=== PATIENT | male | born 1960 | race Hispanic/Latino ===

== ENCOUNTER 2018-11-16 08:33 | Day surgery (SDC) | payer BC ==
[2018-11-16 09:30] LABS: Hematocrit 43.7 % (35.5-45.6); Hemoglobin 15.3 gm/dl (11.8-15.2); Mean Corpuscular HGB Conc 35 % (32-34); Mean Corpuscular Volume 107 fl (84-94); Platelet Count 147 K/mm3 (140-440); Red Blood Count 4.08 M/mm3 (3.65-5.03); Red Cell Distribution Width 14.4 % (13.2-15.2)
[2018-11-16 09:41] LABS: INR 0.93 (0.87-1.13)
[2018-11-16 09:42] LABS: Partial Thromboplastin Time 28.2 Sec. (24.2-36.6)
[2018-11-16 09:43] LABS: Calcium 9.3 mg/dL (8.4-10.2)
[2018-11-16] MEDS ORDERED: NACL 0.9% 500 ML 500 ML IV SCH (10:00)
[2018-11-16] MEDS ORDERED: HEPARIN/NS 5000 UNIT/500ML(CATH LAB) 0 ML IR ONE (11:08)
[2018-11-16] MEDS ORDERED: XYLOCAINE 2% INFILTRATI ONE (11:59)
[2018-11-16] MEDS ORDERED: HEPARIN/NS 5000 UNIT/500ML(CATH LAB) 500 ML IR ONE ×2 (11:59→12:40)
[2018-11-16] MEDS ORDERED: VERSED ONE (12:25)
[2018-11-16] MEDS ORDERED: SUBLIMAZE ONE (12:25)
[2018-11-16] MEDS ORDERED: NITROGLYCERIN SYRINGE 3 ML ONE (12:50)
[2018-11-16] MEDS: HEPARIN 10,000 UNITS/10 ML ONE ×2 (12:50→13:21)
[2018-11-16] MEDS ORDERED: CALAN ONE (12:50)
--- NOTE | 2018-11-16 13:52 | Short Stay Summary ---
Short Stay Documentation Date of service: 11/16/18 Narrative H&P: See H&P - History H&P: obtained from office - Allergies and Medications Current Medications: Allergies adhesive tape Adverse Reaction (Unverified 11/16/18 08:34) Rash Home Medications Medication Instructions Recorded Confirmed Last Taken Type Pravastatin [Pravachol] 20 mg PO DAILY 11/16/18 11/16/18 11/15/18 History 1 tab amLODIPine [Norvasc] 5 mg PO DAILY 11/16/18 11/16/18 11/15/18 History 1 tab raNITIdine HCl [Zantac] 150 mg PO 11/16/18 11/15/18 History 1 tab Active Medications Sodium Chloride (Nacl 0.9% 500 Ml) 500 mls @ 50 mls/hr IV DIRECT NICA - Brief post op/procedure progress note Date of procedure: 11/16/18 Pre-op diagnosis: 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 Ultrasound-Guided Access Right Radial Artery 2. Diagnostic Thoracic Aortogram (No Previous Films For Comparison) 3. Right Upper Extremity Runoff (No Previous Films For Comparison) 4. Angioplasty of Right Subclavian Artery with 7 x 60 Lutonix Drug-Coated Balloon 5. Radiologic Supervision with Interpretation Anesthesia: local Surgeon: YAMILETH LOVE Estimated blood loss: 50-100ml Condition: stable - Disposition Condition at discharge: Good Disposition: DC-01 TO HOME OR SELFCARE Short Stay Discharge Plan Activity: other (no strenuous activity with right arm for 24 hours) Wound: open to air, keep clean and dry Follow up with: YAMILETH LOVE MD [Staff Physician] - 14 Days Prescriptions: HYDROcodone/APAP 7.5-325 [[place] 7.5/325] 1 each PO Q6HR PRN #20 tablet PRN Reason: Pain Clopidogrel [Plavix] 75 mg PO QDAY #90 tablet
[2018-11-16] MEDS ORDERED: PLAVIX PO ONE (14:37)
--- NOTE | 2018-11-16 14:38 | Operative Report ---
Operative Report Operative Report: Date of Procedure: 11/16/2018 Pre-operative Diagnosis: Right Subclavian Stenosis with Vertebrobasilar Syndrome Post-operative Diagnosis: Same Procedure(s): 1. Ultrasound-Guided Access Right Radial Artery 2. Diagnostic Thoracic Aortogram (No Previous Films For Comparison) 3. Right Upper Extremity Runoff (No Previous Films For Comparison) 4. Angioplasty of Right Subclavian Artery with 7 x 60 Lutonix Drug-Coated Balloon 5. Radiologic Supervision with Interpretation Surgeon: Jarek Torre M.D. Registration Rep: None Anesthesia: Local and IV Sedation EBL: 50 mL Counts: Correct Complications: None Condition: Stable Specimen: None Indication: The patient is a 58-year-old male with a history of tobacco abuse and peripheral vascular disease who had a previous stent placed in his right subclavian artery in 2011. He presented to the office with complaints of dizziness that was associated with use of his right upper extremity. He also had a differential on his pulse exam as well as a greater than 20 point differential in his systolic blood pressure with his left being greater than his right. His symptoms are consistent with vertebrobasilar syndrome and occlusion/stenosis of his subclavian artery. He had a upper extremity duplex that demonstrated monophasic flow in the entire right upper extremity which is consistent with the exam findings. Given this the patient was offered a right upper extremity arteriogram with possible intervention to resolve his symptoms as he is right hand dominant and this has been affecting his job. He was given the risk, benefits, and alternative procedures and consented to the procedure. Angiographic Findings: The right upper extremity arteriogram revealed complete occlusion of the subclavian stent with retrograde flow through the right vertebral artery supplying flow to the distal subclavian artery. The diagnostic thoracic aortogram revealed the aorta was patent without evidence of aneurysmal dilatation or significant stenosis. There was no significant evidence of left common carotid or left subclavian stenosis noted. The innominate artery was patent without any evidence of flow-limiting stenosis. The right common carotid artery was patent without evidence of flow-limiting stenosis. After intervention there was less than 10% residual stenosis in the right subclavian artery and the right vertebral artery had antegrade flow as well as preserved flow in the right internal mammary artery and the thyrocervical trunk. Description of Procedure: The patient was brought into the foundry laborer coreroom and laid in supine position. After a timeout was performed his right arm and right groin were prepped and draped in normal sterile fashion. Ultrasound was used to identify the right radial artery and confirm patency. Once patency was confirmed 1% lidocaine was used to anesthetize the skin overlying the artery and micropuncture technique was used to access the artery in retrograde fashion. A 6 Haitian Terumo sheath was then inserted by Seldinger technique. At this point I injected a radial cocktail which included 2000 units of heparin, verapamil, and nitroglycerin through the sheath into the radial artery. A 0.035 Bentson wire and a vertebral catheter were advanced into the proximal subclavian artery and a right upper extremity arteriogram was performed demonstrating the previously described findings of an occluded stent in the proximal subclavian artery with retrograde flow from the vertebral artery providing flow to the distal subclavian artery. I systemically heparinized the patient with an additional 2000 units of heparin IV. I exchanged the Bentson wire for a 0.018 V18 wire and was able to cannulate the occluded stent and eventually able to advance the vertebral catheter into the stent. Once the catheter was embedded within the stent I was able to manipulate the wire through the stent and into the thoracic aorta which was confirmed by arteriogram. I spun the catheter in the aorta to confirm that the catheter was not behind the struts of the stent. I then advanced the V 18 wire into the descending aorta and used a 6 x 20 cutting balloon to perform angioplasty within the stent. After using the cutting balloon I then used a 7 x 60 Lutonix Drug- Coated Balloon to perform angioplasty of the stent as well as the remainder of the subclavian artery. Prior to making the decision to use the drug-coated balloon I had considered using a covered stent however this was not possible as the stent graft was 12 mm longer than the previously placed stent and would have covered the internal mammary artery and possibly the vertebral artery. After performing angioplasty with the 7 x 60 balloon I readvanced the vertebral catheter into the distal innominate artery and performed an arteriogram revealing that the carotid artery was patent. The subclavian artery was patent with less than 10% residual stenosis. The vertebral artery was now antegrade and there was preserved flow within the internal mammary artery as well as the thyrocervical trunk. At that point I removed the catheter and the right radial sheath was removed after placing a TLR Band to achieve hemostasis at the radial artery puncture site. The patient tolerated the procedure well and was transported to the recovery area in stable condition.
[2018-11-16 16:16] VITALS: BP 119/63
== END 2018-11-16 17:11 | disposition home or self-care (01) ==
LOC: CATHLABREC 08:33
PROVIDERS: ATTEND Surgery Vascular Surgery
DX: I77.1 Stricture of artery (principal); G45.0 Vertebro-basilar artery syndrome; I70.213 Atherosclerosis of native arteries of extremities with intermittent claudication, bilateral legs; E78.00 Pure hypercholesterolemia, unspecified; G47.30 Sleep apnea, unspecified; N18.3 Chronic kidney disease, stage 3 (moderate); M19.90 Unspecified osteoarthritis, unspecified site; F17.210 Nicotine dependence, cigarettes, uncomplicated; Z79.899 Other long term (current) drug therapy; Z87.442 Personal history of urinary calculi; Z72.89 Other problems related to lifestyle; Z80.8 Family history of malignant neoplasm of other organs or systems; Z79.01 Long term (current) use of anticoagulants
CPT/HCPCS: 36415; 37246; 75605; 75710; 76937; 80048; 85027; 85610; 85730; 99156; 99157; C1725; C1769; C1894; C2623; J1644; J2250; J3010; J7040; Q9967

== ENCOUNTER 2019-03-27 06:06 | Day surgery (SDC) | payer BC ==
[2019-03-27] MEDS ORDERED: SODIUM CHLORIDE 0.9% 1000 ML 1,000 ML IV SCH (07:00)
[2019-03-27 10:10] VITALS: BP 128/59
--- NOTE | 2019-03-27 11:36 | Cat Scan Report ---
CTA NECK WITH CONTRAST HISTORY: COMPARISON: None. TECHNIQUE: Routine CTA of the neck was performed. 3-D/MIP reformats were postprocessed. Percentage s tenosis is determined by direct quantitative measurements of diseased internal carotid artery diamete r compared with normal distal internal carotid artery reference segments or by criteria similar to NA SCET where applicable.All CT scans at this location are performed using CT dose reduction for ALARA b y means of automated exposure control CONTRAST: 100 ml of Omnipaque 350 FINDINGS: Aortic arch: 2 air margin of aortic arch is normal. Origins of innominate artery and left subclavian artery are normal. Less than 30% narrowing is seen in the proximal 1 cm from the origin of left commo n carotid artery. Cervical vertebral arteries: No significant abnormality. Common carotid arteries: No significant abnormality. Carotid bifurcations: Calcified atheromatous plaque is seen at the origin of right internal carotid a rtery 50% stenoses. 12 mm long atheromatous plaque is seen in the proximal left internal carotid artery. Dense circumfere ntial calcification is seen near the origin narrowing the lumen by 50%. Cervical internal carotid arteries: No significant abnormality. Additional findings: None. IMPRESSION: 50% stenoses in both proximal internal carotid arteries due to calcified plaques Signer Name: Bianka Gallegos MD Signed: 03/27/2019 11:31 AM Workstation Name: [id number]
== END 2019-03-27 11:32 | disposition home or self-care (01) ==
LOC: CATHLABREC 06:06
PROVIDERS: ATTEND Surgery Vascular Surgery
DX: I65.23 Occlusion and stenosis of bilateral carotid arteries (principal)
CPT/HCPCS: 36415; 70498; 82565; 84520; 96360; 96361; J7030; Q9967

== ENCOUNTER 2020-05-22 08:08 | Day surgery (SDC) | payer BC ==
[2020-05-22] MEDS ORDERED: VERAPAMIL 5 MG/2 ML INJ ONE (09:14)
[2020-05-22] MEDS ORDERED: MIDAZOLAM 2 MG/2 ML INJ ONE (09:14)
[2020-05-22] MEDS ORDERED: HEPARIN 10,000 UNITS/10 ML VIAL ONE (09:14)
[2020-05-22] MEDS ORDERED: HEPARIN/NS 5000 UNIT/500ML 1,000 ML IR ONE (09:14)
[2020-05-22] MEDS ORDERED: NITROGLYCERIN SYRINGE 3 ML ONE (09:15)
[2020-05-22 09:50] LABS: Hematocrit 42.8 % (35.5-45.6); Hemoglobin 14.9 gm/dl (11.8-15.2); Mean Corpuscular HGB Conc 35 % (32-34); Mean Corpuscular Volume 110 fl (84-94); Platelet Count 149 K/mm3 (140-440); Red Blood Count 3.91 M/mm3 (3.65-5.03); Red Cell Distribution Width 14.4 % (13.2-15.2)
[2020-05-22] MEDS ORDERED: SODIUM CHLORIDE 0.9% 500 ML 500 ML IV SCH (10:00)
[2020-05-22 10:02] LABS: Calcium 9.4 mg/dL (8.4-10.2)
[2020-05-22 10:03] LABS: INR 0.93 (0.87-1.13)
[2020-05-22 10:04] LABS: Partial Thromboplastin Time 27.8 Sec. (24.2-36.6)
[2020-05-22] MEDS: fentaNYL 100 MCG/2 ML INJ ONE ×2 (11:30→12:19)
[2020-05-22] MEDS: LIDOCAINE (2%) 20 MG/1 ML VIAL 20 ML MDV INFILTRATI ONE ×2 (11:37→11:40)
--- NOTE | 2020-05-22 12:32 | Short Stay Summary ---
Short Stay Documentation Date of service: 05/22/20 Narrative H&P: See H&P - History H&P: obtained from office - Allergies and Medications Current Medications: Allergies adhesive tape Adverse Reaction (Verified 04/16/19 09:02) Rash Home Medications Medication Instructions Recorded Confirmed Last Taken Type Clopidogrel [Plavix] 75 mg PO QDAY #90 tablet 11/16/18 05/22/20 05/22/20 Rx 0630 Pravastatin [Pravachol] 20 mg PO QHS 11/16/18 05/22/20 05/21/20 History Aspirin EC [Halfprin EC] 81 mg PO HS 03/27/19 05/22/20 05/22/20 06:30 History Cholecalciferol (Vitamin D3) 1 tab PO DAILY 03/27/19 05/22/20 05/21/20 History [Vitamin D3 2,000 UNIT CAP] Metoprolol [Lopressor TAB] 25 mg PO BID 03/27/19 05/22/20 05/22/20 History Potassium Citrate [Urocit-K 15] 15 meq PO DAILY 03/27/19 05/22/20 05/21/20 History Sertraline [Zoloft] 100 mg PO DAILY 03/27/19 05/22/20 05/22/20 History allopurinoL [Zyloprim] 300 mg PO DAILY 03/27/19 05/22/20 05/21/20 History HYDROcodone/APAP 7.5-325 [Telephone 1 each PO Q6H #40 tablet 04/17/19 05/22/20 2 Weeks Ago Rx 7.5/325] ~05/08/20 Active Medications Sodium Chloride (Nacl 0.9% 500 Ml) 500 mls @ 50 mls/hr IV DIRECT NICA Last Admin: 05/22/20 11:00 Dose: 50 mls/hr Documented by: - Brief post op/procedure progress note Date of procedure: 05/22/20 Pre-op diagnosis: Peripheral Vascular Disease With Right Subclavian Artery Occlusion Post-op diagnosis: same Procedure: 1. Ultrasound-Guided Access Right Common Femoral Artery 2. Catheter in Thoracic Aorta 3. Diagnostic Aortogram 4. Catheter in Right Subclavian Artery 5. Diagnostic Right Upper Extremity Angiogram 6. Angioplasty of Right Subclavian Artery with 7 x 40 Angiosculpt Balloon and 7 x 80 IN.PACT Drug-Coated Balloon 7. Closure of Right Femoral Arteriotomy with Pro-[place] Closure Device 8. Radiologic Supervision with Interpretation 9. Monitored Moderate Sedation (Total Anesthesia Time: 60 Minutes) Anesthesia: local, other (Monitored Moderate Sedation) Surgeon: YAMILETH LOVE Estimated blood loss: minimal Pathology: none Condition: stable - Disposition Condition at discharge: Good Disposition: DC-01 TO HOME OR SELFCARE Short Stay Discharge Plan Activity: other (No strenuous activity for 24 hours) Wound: remove dressing (In 48 hours), other (Okay to shower and wash the wound with soap and water but do not soak in water for 2 weeks) Follow up with: YAMILETH LOVE MD [Staff Physician] - 7 Days
[2020-05-22] MEDS ORDERED: HYDROcodone/ACETAMINOPHEN 5-325 MG TAB PO PRN (12:34)
--- NOTE | 2020-05-22 12:34 | Operative Report ---
Operative Report Operative Report: Date of Procedure: 05/22/2020 Pre-operative Diagnosis: PVD with Symptomatic Right Subclavian Artery Occlusion Post-operative Diagnosis: Same Procedure(s): 1. Ultrasound-Guided Access Right Common Femoral Artery 2. Catheter in Thoracic Aorta 3. Diagnostic Aortogram 4. Catheter in Right Subclavian Artery 5. Diagnostic Right Upper Extremity Angiogram 6. Angioplasty of Right Subclavian Artery with 7 x 40 Angiosculpt Balloon and 7 x 80 IN.PACT Drug-Coated Balloon 7. Closure of Right Femoral Arteriotomy with Pro-[place] Closure Device 8. Radiologic Supervision with Interpretation 9. Monitored Moderate Sedation (Total Anesthesia Time: 60 Minutes) Surgeon: Jarek Torre M.D. Quality Assurance Clerk: None Anesthesia: Local/Monitored Moderate Sedation Total Anesthesia Time: 60 Minutes EBL: Minimal Counts: Correct Complications: None Condition: Stable Specimen: None Indication: The patient is a 60-year-old male with a history of peripheral vascular disease and subclavian artery occlusion who has had previous angioplasty and stent of the right subclavian artery. He presented to the office with complaints consistent with subclavian steal. He has a greater than 30 mmHg difference between his right arm and left arm. He is in need of a diagnostic right upper extremity angiogram with possible intervention. He was given the risk, benefits, and alternative procedures and consented to the procedure. Angiographic Findings: The diagnostic aortogram revealed that the thoracic aorta was patent without evidence of aneurysmal dilatation or flow-limiting stenosis. The innominate artery was patent without evidence of flow-limiting stenosis or aneurysmal dilatation. The right subclavian artery had a 99% stenosis. The right common carotid artery was patent without evidence of flow-limiting stenosis. The left common carotid artery was patent without evidence of flow-limiting stenosis. The left subclavian artery was patent without evidence of flow-limiting stenosis. The right upper extremity angiogram revealed the right distal subclavian artery, axillary artery, and proximal brachial artery were patent without evidence of flow-limiting stenosis. After intervention the proximal subclavian artery was patent with less than 10% residual stenosis. Description of Procedure: The patient was brought to the Reconciling Clerk and laid in supine position. After a timeout was performed both his right wrist and right groin were prepped and draped in normal sterile fashion. I initially used ultrasound to interrogate his right radial artery however I was unable to identify the artery and it was likely occluded from previous interventions performed through the artery. I used ultrasound to identify the right common femoral artery and confirm patency. Once patency was confirmed lidocaine was used to anesthetize the skin and overlying soft tissue. I used an 11 blade to make a small stab incision and then used a curved hemostat with ultrasound guidance to bluntly dissect down to the anterior surface of the right common femoral artery. Use a 21-gauge micropuncture needle with ultrasound guidance into the right common femoral artery and then advanced a 0.018 micropuncture wire. I removed the needle and then advanced a micropuncture sheath by Seldinger technique. I remove the wire and inner cannula and then advanced a 0.035 J-wire. I remove the micropuncture sheath and placed a 6 Ecuadorean sheath by Seldinger technique. I advanced the wire into the thoracic aorta and then advanced a 6 Ecuadorean IM catheter. I performed a diagnostic thoracic aortogram with the previously described findings. I then used the IM catheter to cannulate the innominate artery and was able to use the IM catheter with a 0.035 advantage wire to cannulate the stent within the subclavian artery. I advanced the wire into the brachial artery and then advanced the catheter into the subclavian artery. I placed a Tuohy Josette on the catheter and performed a diagnostic right upper extremity angiogram with the previously described findings. I remove the catheter leaving the wire in place and then exchanged my 6 Ecuadorean sheath for a 7 Ecuadorean 90 cm destination sheath. I advanced the sheath into the distal subclavian artery and then systemically heparinized the patient with 5000 units of heparin IV. I then advanced a 7 mm Spider Wire into the subclavian artery, just distal to the stent and then performed angioplasty of the stent using a 7 x 40 Angiosculpt Balloon. After performing angioplasty with the balloon I readvanced the IM catheter into the subclavian artery to recapture the Spider Wire and then readvanced the advantage wire into the brachial artery. I then performed angioplasty of the stent and distal subclavian artery using a 7 x 80 IN.PACT Drug-Coated Balloon with a result of less than 10% residual stenosis. At this point I pulled the sheath back into the right external iliac artery and exchanged the wire for a J-wire. I then closed my right femoral arteriotomy with a Pro-glide closure device. A sterile dressing was then applied to the entry site and the patient was trans ported to the recovery area in stable condition
[2020-05-22 14:21] VITALS: BP 144/75
== END 2020-05-22 14:30 | disposition home or self-care (01) ==
LOC: CATH 08:08
PROVIDERS: ATTEND Surgery Vascular Surgery
DX: I65.21 Occlusion and stenosis of right carotid artery (principal); I73.9 Peripheral vascular disease, unspecified; G43.909 Migraine, unspecified, not intractable, without status migrainosus; E78.00 Pure hypercholesterolemia, unspecified; K21.9 Gastro-esophageal reflux disease without esophagitis; I12.9 Hypertensive chronic kidney disease with stage 1 through stage 4 chronic kidney disease, or unspecified chronic kidney disease; N18.30 Chronic kidney disease, stage 3 unspecified; Z87.442 Personal history of urinary calculi; M19.90 Unspecified osteoarthritis, unspecified site; F32.9 Major depressive disorder, single episode, unspecified; F17.210 Nicotine dependence, cigarettes, uncomplicated; Z72.89 Other problems related to lifestyle; Z98.890 Other specified postprocedural states; Z80.8 Family history of malignant neoplasm of other organs or systems; Z88.8 Allergy status to other drugs, medicaments and biological substances; Z79.899 Other long term (current) drug therapy
CPT/HCPCS: 36415; 37246; 75625; 75710; 76937; 80048; 85027; 85610; 85730; 99156; 99157; C1725; C1760; C1769; C1884; C1887; C1894; C2623; J1644; J2250; J3010; J7040; Q9967

== ENCOUNTER 2020-06-16 06:16 | Inpatient (IN) | payer BC ==
[2020-06-15 10:42] LABS: Hematocrit 40.2 % (35.5-45.6); Mean Corpuscular HGB Conc 35 % (32-34); Mean Corpuscular Volume 109 fl (84-94); Platelet Count 140 K/mm3 (140-440); Red Blood Count 3.68 M/mm3 (3.65-5.03); Red Cell Distribution Width 14.2 % (13.2-15.2)
[2020-06-15 11:02] LABS: Albumin 3.8 g/dL (3.9-5); Calcium 9.4 mg/dL (8.4-10.2)
--- NOTE | 2020-06-15 11:54 | Anesthesia Consultation ---
Anesthesia Consult and Med Hx Date of service: 06/16/20 - Airway Anesthetic Teeth Evaluation: Dentures ROM Head & Neck: Adequate Mental/Hyoid Distance: Adequate Mallampati Class: Class II Intubation Access Assessment: Probably Good - Pulmonary Exam CTA: Yes - Cardiac Exam Cardiac Exam: RRR - Pre-Operative Health Status ASA Pre-Surgery Classification: ASA3 Proposed Anesthetic Plan: General - Pulmonary Hx Smoking: Yes (1PPD) Hx Respiratory Symptoms: No - Cardiovascular System Hx Hypertension: Yes Hx Heart Attack/AMI: No Hx Percutaneous Transluminal Coronary Angioplasty (PTCA): No Hx Cardia Arrhythmia: No Hx Peripheral Vascular Disease: Yes (b/l LE; last dose ASA/plavix 06/15/20) - Central Nervous System CVA: No Hx Psychiatric Problems: Yes (depression) - Gastrointestinal Hx Gastroesophageal Reflux Disease: Yes - Endocrine Hx Renal Disease: Yes (CKD 3) Hx Liver Disease: No Hx Insulin Dependent Diabetes: No Hx Non-Insulin Dependent Diabetes: No Hx Thyroid Disease: No - Other Systems Hx Obesity: No - Additional Comments Anesthesia Medical History Comments: No hx anesthetic complications. Most recent cardiac records/eval reviewed. 02/2018: normal ST and TTE. 03/2019 EKG SB.
[~2020-06-16 06:16] MED LIST: ACETAMINOPHEN 500 MG TAB PO SCH; BACTERIOSTATIC SODIUM CHLORIDE 0.9% 30 ML VIAL INFILTRATI ONE; MIDAZOLAM 2 MG/2 ML INJ IV NR; ceFAZolin/Water 2 GM/20 ML 2 GM/20 ML SYRINGE IV NR
--- NOTE | 2020-06-16 06:34 | Anesthesia Day of Surgery ---
Anesthesia Day of Surgery - Day of Surgery Patient Examined: Yes Patient H&P Reviewed: Yes Patient is NPO: Yes Beta Blockers: Yes
[2020-06-16] MEDS ORDERED: LIDOCAINE (2%) 20 MG/1 ML VIAL 20 ML MDV INFILTRATI ONE (06:52)
[2020-06-16] MEDS ORDERED: MAGNESIUM SULFATE 2 GM/50 ML BAG IV ONE (06:53)
[2020-06-16] MEDS ORDERED: KETAMINE/STERILE WATER 50 MG/ML SYRINGE ONE (07:00)
[2020-06-16] MEDS ORDERED: KETOROLAC 30 MG/1 ML INJ ONE (07:06)
[2020-06-16] MEDS ORDERED: ONDANSETRON 4 MG/2 ML INJ ONE (07:06)
[2020-06-16] MEDS ORDERED: propofoL 200 MG/20 ML VIAL IV ONE (07:06)
[2020-06-16] MEDS ORDERED: ROCURONIUM 50 MG/5 ML INJ IV ONE (07:06)
[2020-06-16] MEDS ORDERED: dexAMETHasone 20 MG/5 ML VIAL ONE (07:06)
[2020-06-16] MEDS: LACTATED RINGERS 1,000 ML IV SCH ×2 (07:15→22:58)
[2020-06-16] MEDS ORDERED: BUPIVACAINE/PF (0.5%) 5 MG/1 ML 10 ML VIAL INFILTRATI ONE ×4 (07:26→10:06)
[2020-06-16] MEDS ORDERED: HEPARIN 10,000 UNITS/10 ML VIAL ONE (07:26)
[2020-06-16] MEDS ORDERED: GELATIN SPONGE SIZE 100 TP ONE ×2 (07:26→09:06)
[2020-06-16] MEDS ORDERED: PROTAMINE SULFATE 50 MG/5 ML INJ ONE (07:27)
[2020-06-16] MEDS ORDERED: PAPAVERINE 60 MG/2 ML INJ SDV ONE (07:27)
[2020-06-16] MEDS ORDERED: SODIUM CHLORIDE 0.9% 50 ML ONE (07:27)
[2020-06-16] MEDS ORDERED: SODIUM CHLORIDE 0.45% 500 ML IV ONE (07:27)
[2020-06-16] MEDS ORDERED: LIDOCAINE (1%) 10 MG/1 ML VIAL 20 ML MDV ONE (07:28)
[2020-06-16] MEDS ORDERED: THROMBIN (RECOMBINANT) 5,000 UNIT VIAL TP ONE (07:29)
[2020-06-16] MEDS ORDERED: rifAMPin 600 MG VIAL ONE (07:29)
[2020-06-16] MEDS ORDERED: HYDROmorphone 1 MG/1 ML INJ IV PRN (07:34)
[2020-06-16] MEDS ORDERED: ONDANSETRON 4 MG/2 ML INJ IV PRN (07:34)
[2020-06-16] MEDS ORDERED: PHENYLEPHRINE/NS 1,000 MCG/10 ML SYRINGE (OR USE) IV ONE (08:00)
[2020-06-16] MEDS ORDERED: GLYCOPYRROLATE 0.4 MG/2 ML INJ ONE (08:00)
[2020-06-16] MEDS ORDERED: ePHEDrine SULFATE 50 MG/1 ML INJ ONE (08:24)
[2020-06-16] MEDS ORDERED: HEPARIN 10,000 UNITS/10 ML VIAL IV ONE (09:05)
[2020-06-16] MEDS ORDERED: SODIUM CHLORIDE 0.9% 500 ML IVPB IV ONE (09:06)
[2020-06-16] MEDS ORDERED: SODIUM CHLORIDE 0.9% IRR 1,500 ML BOTTLE IR ONE (09:06)
[2020-06-16] MEDS ORDERED: rifAMPin 600 MG VIAL IV ONE (09:25)
[2020-06-16] MEDS ORDERED: SODIUM CHLORIDE 0.9% P/F 10 ML VIAL IV ONE (09:26)
--- NOTE | 2020-06-16 10:29 | Vascular Lab Report ---
DUPLEX DOPPLER ULTRASOUND CAROTID, LEFT INDICATION / CLINICAL INFORMATION: Left carotid atherosclerosis, status post carotid endarterectomy COMPARISON: CTA neck performed on 03/27/2019. FINDINGS: LEFT CAROTID: - PLAQUE ESTIMATE: < 50% - CCA velocity: Not evaluated. - ICA peak systolic velocity: 63 cm/sec. - ICA/CCA PSV Ratio: Not measured. Left Vertebral Artery: Not evaluated. IMPRESSION: Left carotid atherosclerosis resulting in less than 50% stenosis by diameter with a normal peak systo lic velocity along the internal carotid artery as above. Velocity criteria are extrapolated from diameter data as defined by the Society of Radiologists in Ul trasound Consensus Conference, Radiology 2003; 229;340-346. NO STENOSIS (NORMAL) * Plaque = none; ICA PSV < 125 cm/sec; ICA/CCA PSV Ratio < 2.0 <50% STENOSIS * Plaque < 50%; ICA PSV < 125 cm/sec; ICA/CCA PSV Ratio < 2.0 50-69% STENOSIS * Plaque > 50%; ICA PSV = 125-230 cm/sec; ICA/CCA PSV Ratio = 2.0-4.0 >70% BUT <100% STENOSIS * Plaque > 50%; ICA PSV > 230 cm/sec; ICA/CCA PSV Ratio > 4.0 NEAR OCCLUSION * Plaque = visible lumen; ICA PSV = high/low/none; ICA/CCA PSV Ratio = variable TOTAL OCCLUSION * Plaque = no lumen; ICA PSV = none; ICA/CCA PSV Ratio = N/A Signer Name: Damian Arreguin MD Signed: 06/16/2020 10:24 AM Workstation Name: [employer]: [id number]
--- NOTE | 2020-06-16 10:40 | Operative Report ---
Operative Report Operative Report: Date of procedure: 06/16/2020 Pre-operative diagnosis: Asymptomatic Left Carotid Artery Stenosis Post-operative diagnosis: Asymptomatic Left Carotid Artery Stenosis Procedure(s): 1. Left Carotid Endarterectomy With Patch Angioplasty 2. Intraoperative Completion Duplex Surgeon: Jarek Torre MD Plant Engineer: None Anesthesia: General Endotracheal Anesthesia EBL: 75 mL Findings: Firm calcified plaque at the bifurcation extending into the internal and external carotid arteries. Intraoperative completion duplex demonstrated monophasic flow in the internal carotid artery without evidence of thrombus or dissection flap. Specimen: Left Carotid Plaque Counts: Correct Complications: None Condition: Stable Indication: The patient is a 60-year-old male with a history of bilateral asymptomatic carotid artery disease. He has had prior carotid endarterectomy performed on the right now presents for endarterectomy of the left. He has been given the risk, benefits, and alternative procedures and consented to the procedure. Description of Procedure: The patient was brought to the operating room and laid in supine position. After general endotracheal anesthesia was achieved the patient was placed in beachchair position with her head elevated and turned slightly to the right. The patient's neck and chest were prepped and draped in normal fashion. An oblique incision was then created along the anterior border of the sternocleidomastoid. The incision was then carried down to the facial vein using sharp dissection. The facial vein was then dissected out circumferentially, suture ligated and divided. The dissection was then carried down to the common carotid using sharp dissection. The common carotid artery was dissected out circumferentially taking care to avoid the vagus nerve which was identified and avoided. The artery was then controlled with a large vessel loop. The dissection was carried up along the external carotid and the superficial thyroid artery was identified dissected out circumferentially and controlled with a 2-0 silk. The external carotid was dissected out and controlled a small vessel loop. I then dissected out the internal carotid artery well above the plaque which was identified by a change in hue of the artery from yellow to blue and palpation of the artery over a right angle. I controlled the internal carotid artery with a small vessel and at this point the patient was systemically heparinized with heparin IV. Once the heparin had circulated for 3 minute I clamped the internal carotid artery followed by the common carotid and then the external Carotid artery. I created an arteriotomy extending from the common carotid into the internal carotid, well above the plaque, using an 11 blade and Proctor scissors. I then flashed the internal carotid artery to check for adequate backbleeding. Once ensure there was adeq uate backbleeding reclamped the artery and used a Alpine blade to dissect the plaque away from the artery. I used a right angle to continue the dissection of this plane from lateral to medial and then divided the plaque using Proctor scissors. I then trimmed the plaque proximally using Proctor and then teased the plaque away from the distal endpoint insuring that there were no areas of dissection or intimal flaps. These plaque forceps to remove all loose debris and then flushed the artery with heparinized saline. I then closed the artery using the Dacron patch and two 6-0 Prolenes in running fashion. Prior to completing the closure I flushed all arteries to remove all loose debris and then flushed the artery with heparinized saline. I then completed the closure in an flashed the internal carotid, reclamped and then removed the clamp from the common carotid followed by the external carotid and allowed any loose debris to flush into the external carotid. I then removed the clamp from the internal carotid artery. Hemostasis was achieved with repair sutures with 6-0 Prolene in interrupted fashion and a combination of direct pressure with Quick Clot. Once hemostasis was achieved I performed an intraoperative duplex that demonstrated no evidence of dissection and normalization of internal carotid velocity with monophasic waveforms. I then anesthetized the wound with 0.5% Marcaine and closed in 2 layers using a 3-0 Vicryl in running in the deep dermal layer and a 4-0 Monocryl in running in the subcuticular layer and dressed it with the Dermabond. The patient tolerated the procedure well all sponge needle and instrument counts were correct the patient was taken to the recovery area in stable condition.
[2020-06-16] MEDS ORDERED: DOPamine/D5W 800 MG/250 ML 800 MG/250 ML BAG IV SCH (11:00)
[2020-06-16] MEDS ORDERED: HYDROcodone/ACETAMINOPHEN 5-325 MG TAB PO PRN (11:00)
[2020-06-16] MEDS ORDERED: SODIUM CHLORIDE 0.9% 1000 ML 1,000 ML IV SCH (11:00)
[2020-06-16] MEDS ORDERED: NITROPRUSSIDE 50 MG in DEXTROSE 5% IN WATER 248 ML IV SCH (11:00)
[2020-06-16] MEDS: ceFAZolin/NS 1 GM/50 ML 1 GM/50 ML BAG IV SCH ×2 (12:30→20:11)
--- NOTE | 2020-06-16 14:33 | Post Anesthesia Evaluation ---
- Post Anesthesia Evaluation Patient Participated: Yes Airway Patent: Yes Stable Respiratory Function: Yes Nausea/Vomiting: No Temp > 96.8F: Yes Pain Manageable: Yes Adequeate Hydration: Yes Anesthesia Complications: No
--- NOTE | 2020-06-16 17:21 | Consultation ---
History of Present Illness Consult date: 06/16/20 Requesting physician: YAMILETH LOVE Reason for consult: other (PVD s/p CEA) History of present illness: PULMONARY/CCM CONSULT NOTE (Full dictation # [id number]) Please see dictated notes for full details Medications and Allergies Allergies Allergy/AdvReac Type Severity Reaction Status Date / Time adhesive tape AdvReac Rash Verified 06/12/20 12:35 Home Medications Medication Instructions Recorded Confirmed Last Taken Type Clopidogrel [Plavix] 75 mg PO QDAY #90 tablet 11/16/18 06/15/20 06/15/20 Rx Pravastatin [Pravachol] 20 mg PO QHS 11/16/18 06/15/20 06/15/20 History Aspirin EC [Halfprin EC] 81 mg PO HS 03/27/19 06/15/20 06/15/20 History Cholecalciferol (Vitamin D3) 1 tab PO DAILY 03/27/19 06/15/20 06/15/20 History [Vitamin D3 2,000 UNIT CAP] Metoprolol [Lopressor TAB] 25 mg PO BID 03/27/19 06/16/20 06/16/20 05:30 History Potassium Citrate [Urocit-K 15] 15 meq PO DAILY 03/27/19 06/15/20 06/15/20 History Sertraline [Zoloft] 100 mg PO DAILY 03/27/19 06/15/20 06/15/20 History allopurinoL [Zyloprim] 300 mg PO DAILY 03/27/19 06/15/20 06/15/20 History Active Meds: Active Medications Acetaminophen (Acetaminophen 500 Mg Tab) 1,000 mg PO PREOP NICA Stop: 06/16/20 23:59 Last Admin: 06/16/20 06:45 Dose: 1,000 mg Documented by: Hydrocodone Bitart/Acetaminophen (Hydrocodone/Acetaminophen 5-325 Mg Tab) 1 each PO Q6H PRN PRN Reason: Pain, Moderate (4-6) Allopurinol (Allopurinol 300 Mg Tab) 300 mg PO DAILY [facility] Aspirin (Aspirin Ec 81 Mg Tab) 81 mg PO HS [facility] Cholecalciferol (Cholecalciferol (Vit D3) 1000 Unit (25 Mcg) Tab) 1,000 unit PO DAILY [facility] Clopidogrel Bisulfate (Clopidogrel 75 Mg Tab) 75 mg PO QDAY [facility] Docusate Sodium (Docusate Sodium 100 Mg Cap) 100 mg PO BID N[facility] Famotidine (Famotidine 20 Mg Tab) 20 mg PO QHS [facility] Hydromorphone HCl (Hydromorphone 1 Mg/1 Ml Inj) 0.5 mg IV Q10MIN PRN PRN Reason: Pain , Severe (7-10) Stop: 06/16/20 20:00 Cefazolin Sodium (Ancef/Sterile Water 2 Gm/20 Ml) 2 gm in 20 mls @ 80 mls/hr IV PREOP NR; Protocol Stop: 06/16/20 23:59 Lactated Ringer's (Lactated Ringers) 1,000 mls @ 75 mls/hr IV DIRECT NICA Last Admin: 06/16/20 07:15 Dose: 75 mls/hr Documented by: Sodium Chloride (Nacl 0.9% 1000 Ml) 1,000 mls @ 100 mls/hr IV DIRECT NICA Cefazolin Sodium (Ancef/Ns 1 Gm/50 Ml) 1 gm in 50 mls @ 100 mls/hr IV Q8H NICA Stop: 06/16/20 20:29 Dopamine HCl/Dextrose (Intropin Drip 800 Mg/D5w 250 Ml) 800 mg in 250 mls @ 3.3 mls/hr IV TITR NICA; Protocol Sodium Nitroprusside 50 mg/ (Dextrose) 250 mls @ 6.6 mls/hr IV TITR NICA; Protocol Metoprolol Tartrate (Metoprolol Tartrate 25 Mg Tab) 25 mg PO BID N[facility] Midazolam HCl (Midazolam 2 Mg/2 Ml Inj) 2 mg IV PREOP NR Stop: 06/16/20 23:59 Last Admin: 06/16/20 07:25 Dose: 2 mg Documented by: Miscellaneous Medication (Potassium Citrate [Urocit-K 15]) 15 meq PO DAILY [facility] Ondansetron HCl (Ondansetron 4 Mg/2 Ml Inj) 4 mg IV ONCE PRN PRN Reason: Nausea And Vomiting Stop: 06/16/20 20:00 Pravastatin Sodium (Pravastatin 20 Mg Tab) 20 mg PO QHS [facility] Sertraline HCl (Sertraline 100 Mg Tab) 100 mg PO DAILY [facility] Physical Examination Vital signs: Vital Signs Temp Pulse Resp BP Pulse Ox 98.3 F 54 L 18 126/52 98 06/15/20 10:00 06/15/20 10:00 06/15/20 10:00 06/15/20 10:00 06/15/20 10:00 Results - Laboratory Findings CBC and BMP: 06/15/20 10:05 06/15/20 10:05 Abnormal lab findings: Abnormal Labs 06/15/20 06/15/20 10:05 10:05 MCV 109 H MCH 38 H MCHC 35 H Sodium 135 L Creatinine 1.6 H Glucose 101 H Albumin 3.8 L
[2020-06-16] MEDS ORDERED: FAMOTIDINE 20 MG TAB PO SCH (22:00)
[2020-06-16] MEDS ORDERED: PRAVASTATIN 20 MG TAB PO SCH (22:00)
[2020-06-16] MEDS ORDERED: ASPIRIN EC 81 MG TAB PO SCH (22:00)
--- NOTE | 2020-06-16 22:56 | Consultation ---
PULMONARY CRITICAL CARE CONSULT NOTE CONSULTING PHYSICIAN: Dr. Torre. REASON FOR CONSULTATION: Peripheral vascular disease, status post carotid endarterectomy, need for ICU monitoring. CHIEF COMPLAINT AND HISTORY OF PRESENT ILLNESS: The patient is a now 60-year-old male with a past medical history significant amongst other things for a diagnosis of peripheral vascular disease. He has had a prior carotid endarterectomy, admitted to the hospital for right carotid endarterectomy. He does have a history of other vascular surgery in the past. Post-procedure, he is transferred to the Intensive Care Unit for further management. He has a 20+ pack year tobacco smoking history, tells me he still continues to smoke, but he is smoking 1 pack a day as against when he was smoking 2 packs a day. When I stopped by to see him, he was resting in bed, feeling better. Denied any significant pain at the site of the surgery. Denied chest pain. Denied nausea, vomiting, fevers or chills. Denied any new leg pain or swelling either unilaterally or bilaterally. Denied any history of venous thromboembolic phenomena. This really is as much of the history of this presentation as I have. PAST MEDICAL HISTORY: Again, significant for history of hypertension, history of peripheral vascular disease, history of tobacco abuse, history of hyperlipidemia, history of depression/anxiety. PAST SURGICAL HISTORY: Status post prior carotid endarterectomy. Unclear which side, now status post left carotid endarterectomy. MEDICATIONS: He was on at the time I stopped by to see him were reviewed, pertinent medications include the following: He received a 1 gram dose of Tylenol preop, [place] 5/325 one tablet p.o. q. 6 hours p.r.n. moderate pain, allopurinol 300 mg p.o. daily, aspirin 81 mg p.o. at bedtime, Ancef 2 grams IV preop now on 1 gram IV q. 8 hours scheduled, vitamin D3 of 1000 units p.o. daily, Plavix 75 mg p.o. daily, Colace 100 mg p.o. b.i.d., dopamine drip had been going at 2 mcg/kg per minute, Pepcid 20 mg p.o. at bedtime, Dilaudid 0.5 mg IV p.r.n. severe pain, metoprolol 25 mg p.o. b.i.d., non-formulary medication 50 mEq p.o. daily, Zofran 4 mg IV, he received a one-time dose for nausea and vomiting, he is on Pravachol 20 mg p.o. at bedtime, Zoloft 200 mg p.o. daily. ALLERGIES: ADHESIVE TAPE. Nature of this allergy is unknown. DIET: He is a well-built gentleman. Denies acute weight loss or gain in the preceding few weeks to months. FAMILY AND SOCIAL HISTORY: Lives in the community. He has a 20+ pack year tobacco smoking history. Denies alcohol or illicit drug use or abuse. FAMILY HISTORY: Otherwise, noncontributory. REVIEW OF SYSTEMS: No loss of consciousness. No new onset seizures. No new onset focal weakness. Denies gross hematochezia or melena. Denies gross hematuria or dysuria. No hematemesis. No hemoptysis. Denies palpitations. Denies heat or cold intolerance. Denies polydipsia or polyuria. Complete 13-system review of systems was obtained. Pertinent positives and/or negatives as in body of history above, otherwise noncontributory. PHYSICAL EXAMINATION: VITAL SIGNS: At presentation, he is afebrile, temperature 98.3 degrees Fahrenheit, pulse of 54, respiratory rate of 18, blood pressure 126/52, O2 sats were 98% that was on 3 liters nasal cannula when I saw him. GENERAL: He is a well-built male, normocephalic, atraumatic, resting in bed with normal respiratory effort at rest. HEAD, EYES, EARS, NOSE AND THROAT: Anicteric. No conjunctival erythema. Oropharynx was moist. No gross jugular venous distention, no thyromegaly. NECK: Grossly, there were no palpable lymph nodes in the supraclavicular or submandibular lymph node chains. LUNGS: Auscultation of both lung astudillo revealed diminished bilateral breath sounds, slightly prolonged expiratory phase. No wheezing. HEART: Heart sounds 1 and 2 are heard. They were regular in rate and rhythm at time of my evaluation without overt rubs or murmurs. ABDOMEN: Soft, full, protuberant. Bowel sounds are positive, nontender, no palpable hepatosplenomegaly. I should mention he has a scar from the left carotid endarterectomy. No obvious bleeding around the site. EXTREMITIES: Without overt digital clubbing, no cyanosis, no pedal edema. Pedal pulses are 2+ bilaterally. NEUROLOGIC: Pupils are equal, round, about 4 mm, reactive to light. Extraocular muscle movements are intact. He moves all 4 extremities spontaneously. SKIN: Normal turgor in the areas examined without overt cellulitis or rash. Please see the wound care nurse's notes for full description of his skin. He did have the postop changes. PSYCHIATRIC: Mood was normal. Affect was appropriate. He had intact judgment and insight. LABORATORY DATA: From my review as follows: White cell count 7200, hemoglobin 14.0, hematocrit 40.2, platelet count 140. No manual differential. Serum sodium 135, potassium 4.8, chloride 102, bicarbonate 25, BUN 18, creatinine 1.6, glucose 101. Liver function test within normal limits. Coronavirus PCR was negative. No blood cultures. He had a carotid Doppler study done and this is actually postop I believe carotid atherectomy and I am waiting on the results. ASSESSMENT: 1. Peripheral vascular disease. 2. Left carotid artery occlusion, status post left carotid endarterectomy. 3. History of hypertension. 4. History of depression. 5. Mild hyponatremia. 6. Acute possibly on chronic kidney injury. 7. Tobacco use disorder. PLAN: I will watch him overnight in the intensive care unit. Dopamine will be weaned to keep mean arterial pressures greater than or equal to about 65 mmHg. He is currently not needing it. Oxygen will be weaned to keep sats greater than or equal to about 92%. I will go ahead and order a chest x-ray in light of his tobacco smoking history and the need for oxygen at this time. I have strongly counseled tobacco abstinence. I have offered adjuncts to assist with tobacco abstinence and urged him to please follow up outpatient and look at the problem significantly especially considering his comorbidities. I will defer anticoagulation decisions to the vascular team. In the meantime, he is on GI prophylaxis with Pepcid. DVT prophylaxis will be deferred to Vascular Surgery. Flu and pneumonia vaccination will be addressed per protocol. Chronic disease management will otherwise be deferred to the attending physician. Thank you very much for the consult. We will follow along and make further recommendations as picture progresses/becomes clearer. I should also mention we will repeat the BMP in the morning to keep an eye on the serum creatinine. JOB# [id number] DEVON/CRIS HOLGUIND
[2020-06-16] MEDS: METOPROLOL TARTRATE 25 MG TAB PO SCH (22:59)
[2020-06-16] MEDS: DOCUSATE SODIUM 100 MG CAP PO SCH (22:59)
[2020-06-17] MEDS ORDERED: ALUM-MAG HYDROXIDE-SIMETHICONE 200-200-20MG/5ML ORAL LIQD 30 ML PO PRN (00:25)
[2020-06-17 08:50] LABS: Basophils % (Auto) 0.5 % (0.0-1.8); Eosinophils # (Auto) 0.2 K/mm3 (0.0-0.4); Eosinophils % (Auto) 2.4 % (0.0-4.3); Hematocrit 35.1 % (35.5-45.6); Hemoglobin 12.1 gm/dl (11.8-15.2); Lymphocytes # (Auto) 0.8 K/mm3 (1.2-5.4); Lymphocytes % (Auto) 10.3 % (13.4-35.0); Mean Corpuscular HGB Conc 35 % (32-34); Mean Corpuscular Volume 109 fl (84-94); Monocytes # (Auto) 0.4 K/mm3 (0.0-0.8); Monocytes % (Auto) 5.7 % (0.0-7.3); Platelet Count 122 K/mm3 (140-440); Red Blood Count 3.22 M/mm3 (3.65-5.03); Red Cell Distribution Width 14.1 % (13.2-15.2)
[2020-06-17] MEDS: METOPROLOL TARTRATE 25 MG TAB PO SCH (09:01)
[2020-06-17] MEDS: DOCUSATE SODIUM 100 MG CAP PO SCH (09:01)
[2020-06-17] MEDS ORDERED: CLOPIDOGREL 75 MG TAB PO SCH (10:00)
[2020-06-17] MEDS ORDERED: allopurinoL 300 MG TAB PO SCH (10:00)
[2020-06-17] MEDS ORDERED: SERTRALINE 100 MG TAB PO SCH (10:00)
[2020-06-17] MEDS ORDERED: CHOLECALCIFEROL (VIT D3) 1000 UNIT (25 mcg) TAB PO SCH (10:00)
[2020-06-17] MEDS ORDERED: POTASSIUM CITRATE 15 MEQ PO SCH (10:00)
--- NOTE | 2020-06-17 12:34 | Progress Note ---
Assessment and Plan POD#1 s/p Left CEA with patch angioplasty The patient is doing well He has weaned off of Dopamine Tolerating oral intake If he maintains his SBP>100 mmHG off of Dopamine, for 2 hours, okay to discharge home The patient has been given discharge instructions including taking his blood pressure at home prior to taking his antihypertensive medications and tot hold for SBP < 100. He has expressed understanding and agrees. Subjective Date of service: 06/17/20 Interval history: The patient has no complaints at this time. He was recently weaned off of 1 mcg/kg/min of Dopamine. He has no significant events overnight. Objective - Constitutional Vitals: Vital Signs - 12hr 06/17/20 06/17/20 06/17/20 00:30 01:00 01:30 Temperature Pulse Rate 59 L 56 L 51 L Pulse Rate [ From Monitor] Respiratory 20 21 21 Rate Blood Pressure 115/58 119/57 108/45 O2 Sat by Pulse 93 92 Oximetry 06/17/20 06/17/20 06/17/20 02:00 02:30 03:00 Temperature Pulse Rate 58 L 70 58 L Pulse Rate [ From Monitor] Respiratory 19 20 19 Rate Blood Pressure 122/55 125/60 118/60 O2 Sat by Pulse 92 91 93 Oximetry 06/17/20 06/17/20 06/17/20 03:30 04:00 04:30 Temperature 98.6 F Pulse Rate 53 L 58 L 60 Pulse Rate [ 54 L From Monitor] Respiratory 21 17 16 Rate Blood Pressure 123/59 106/43 107/38 O2 Sat by Pulse 94 96 96 Oximetry 06/17/20 06/17/20 06/17/20 05:00 05:30 06:00 Temperature Pulse Rate 83 56 L 51 L Pulse Rate [ From Monitor] Respiratory 15 17 17 Rate Blood Pressure 130/40 102/36 O2 Sat by Pulse 93 95 96 Oximetry 06/17/20 06/17/20 06/17/20 06:30 07:00 07:30 Temperature Pulse Rate 50 L 49 L 54 L Pulse Rate [ From Monitor] Respiratory 17 15 21 Rate Blood Pressure 93/39 118/58 91/45 O2 Sat by Pulse 96 95 95 Oximetry 06/17/20 06/17/20 06/17/20 08:00 08:01 08:31 Temperature 98.1 F Pulse Rate 54 L 69 55 L Pulse Rate [ 54 L From Monitor] Respiratory 20 14 17 Rate Blood Pressure 97/51 97/51 O2 Sat by Pulse 93 97 98 Oximetry 06/17/20 06/17/20 06/17/20 09:01 09:30 10:01 Temperature Pulse Rate 49 L 49 L 56 L Pulse Rate [ From Monitor] Respiratory 21 22 17 Rate Blood Pressure 112/46 123/58 108/43 O2 Sat by Pulse 96 97 95 Oximetry 06/17/20 06/17/20 06/17/20 10:30 11:00 12:00 Temperature 98.1 F Pulse Rate 52 L 54 L Pulse Rate [ From Monitor] Respiratory 21 15 Rate Blood Pressure 111/55 111/52 O2 Sat by Pulse 93 94 Oximetry General appearance: Present: no acute distress - EENT ENT: other (tongue is midline and smile is symmetric) - Neck Neck: other (left neck incision is clean, dry, and intact without evidence of hematoma) - Respiratory Respiratory effort: normal - Cardiovascular Rhythm: regular Extremities: no ischemia - Neurologic Neurologic: no focal deficits, moves all extremities - Labs CBC & Chem 7: 06/17/20 08:31 06/15/20 10:05 Labs: Abnormal lab results 06/17/20 Range/Units 08:31 RBC 3.22 L (3.65-5.03) M/mm3 Hct 35.1 L (35.5-45.6) % MCV 109 H (84-94) fl MCH 38 H (28-32) pg MCHC 35 H (32-34) % Plt Count 122 L (140-440) K/mm3 Lymph % (Auto) 10.3 L (13.4-35.0) % Lymph # (Auto) 0.8 L (1.2-5.4) K/mm3 Seg Neutrophils % 81.1 H (40.0-70.0) % Medications & Allergies - Medications Allergies/Adverse Reactions: Allergies adhesive tape Adverse Reaction (Verified 06/12/20 12:35) Rash Home Medications: Home Medications Medication Instructions Recorded Confirmed Last Taken Type Clopidogrel [Plavix] 75 mg PO QDAY #90 tablet 11/16/18 06/15/20 06/15/20 Rx Pravastatin [Pravachol] 20 mg PO QHS 11/16/18 06/15/20 06/15/20 History Aspirin EC [Halfprin EC] 81 mg PO HS 03/27/19 06/15/2006/15/21 History Cholecalciferol (Vitamin D3) 1 tab PO DAILY 03/27/19 06/15/20 06/15/20 History [Vitamin D3 2,000 UNIT CAP] Metoprolol [Lopressor TAB] 25 mg PO BID 03/27/19 06/16/20 06/16/20 05:30 History Potassium Citrate [Urocit-K 15] 15 meq PO DAILY 03/27/19 06/15/20 06/15/20 History Sertraline [Zoloft] 100 mg PO DAILY 03/27/19 06/15/20 06/15/20 History allopurinoL [Zyloprim] 300 mg PO DAILY 03/27/19 06/15/20 06/15/20 History Active Medications: Generic Name Dose Route Start Last Admin Trade Name Freq PRN Reason Stop Dose Admin Hydrocodone Bitart/Acetaminophen 1 each 06/16/20 11:00 Hydrocodone/Acetaminophen 5-325 Mg Tab PO Q6H PRN Pain, Moderate (4-6) Al Hydrox/Mg Hydrox/Simethicone 30 ml 06/17/20 00:25 06/17/20 01:03 Alum-Mag Hydroxide-Simethicone [id number]/5ml Oral Liqd 30 Ml PO 30 ml Q4H PRN Administration Indigestion Allopurinol 300 mg 06/17/20 10:00 06/17/20 09:02 Allopurinol 300 Mg Tab PO 300 mg DAILY NICA Administration Aspirin 81 mg 06/16/20 22:00 06/16/20 22:59 Aspirin Ec 81 Mg Tab PO 81 mg HS NICA Administration Cholecalciferol 1,000 unit 06/17/20 10:00 06/17/20 09:01 Cholecalciferol (Vit D3) 1000 Unit (25 Mcg) Tab PO 1,000 unit DAILY [facility] Administration Clopidogrel Bisulfate 75 mg 06/17/20 10:00 06/17/20 09:01 Clopidogrel 75 Mg Tab PO 75 mg QDAY [facility] Administration Docusate Sodium 100 mg 06/16/20 22:00 06/17/20 09:01 Docusate Sodium 100 Mg Cap PO Not Given BID N[facility] Famotidine 20 mg 06/16/20 22:00 06/16/20 23:00 Famotidine 20 Mg Tab PO 20 mg QHS N[facility] Administration Lactated Ringer's 1,000 mls @ 75 mls/hr 06/16/20 06:45 06/16/20 22:58 Lactated Ringers IV 75 mls/hr DIRECT NICA Administration Sodium Chloride 1,000 mls @ 100 mls/hr 06/16/20 11:00 Nacl 0.9% 1000 Ml IV DIRECT [facility] Dopamine HCl/Dextrose 800 mg in 250 mls @ 3.3 mls/hr 06/16/20 11:00 06/16/20 22:25 Intropin Drip 800 Mg/D5w 250 Ml IV 2 mcg/kg/min TITR NICA 3.3 mls/hr Administration Protocol 2 MCG/KG/MIN Sodium Nitroprusside 50 mg/ 250 mls @ 6.6 mls/hr 06/16/20 11:00 Dextrose IV TITR NICA Protocol 0.25 MCG/KG/MIN Metoprolol Tartrate 25 mg 06/16/20 22:00 06/17/20 09:01 Metoprolol Tartrate 25 Mg Tab PO Not Given BID [facility] Miscellaneous Medication 15 meq 06/17/20 10:00 Potassium Citrate [Urocit-K 15] PO DAILY [facility] Pravastatin Sodium 20 mg 06/16/20 22:00 06/16/20 23:00 Pravastatin 20 Mg Tab PO 20 mg QHS [facility] Administration Sertraline HCl 100 mg 06/17/20 10:00 06/17/20 09:02 Sertraline 100 Mg Tab PO 100 mg DAILY [facility] Administration
--- NOTE | 2020-06-17 12:38 | Short Stay Summary ---
Short Stay Documentation Date of service: 06/17/20 Narrative H&P: see H&P - History H&P: obtained from office - Allergies and Medications Current Medications: Allergies adhesive tape Adverse Reaction (Verified 06/12/20 12:35) Rash Home Medications Medication Instructions Recorded Confirmed Last Taken Type Clopidogrel [Plavix] 75 mg PO QDAY #90 tablet 11/16/18 06/15/20 06/15/20 Rx Pravastatin [Pravachol] 20 mg PO QHS 11/16/18 06/15/20 06/15/20 History Aspirin EC [Halfprin EC] 81 mg PO HS 03/27/19 06/15/20 06/15/20 History Cholecalciferol (Vitamin D3) 1 tab PO DAILY 03/27/19 06/15/20 06/15/20 History [Vitamin D3 2,000 UNIT CAP] Metoprolol [Lopressor TAB] 25 mg PO BID 03/27/19 06/16/20 06/16/20 05:30 History Potassium Citrate [Urocit-K 15] 15 meq PO DAILY 03/27/19 06/15/20 06/15/20 History Sertraline [Zoloft] 100 mg PO DAILY 03/27/19 06/15/20 06/15/20 History allopurinoL [Zyloprim] 300 mg PO DAILY 03/27/19 06/15/20 06/15/20 History Active Medications Hydrocodone Bitart/Acetaminophen (Hydrocodone/Acetaminophen 5-325 Mg Tab) 1 each PO Q6H PRN PRN Reason: Pain, Moderate (4-6) Al Hydrox/Mg Hydrox/Simethicone (Alum-Mag Hydroxide-Simethicone [phone]/5ml Oral Liqd 30 Ml) 30 ml PO Q4H PRN PRN Reason: Indigestion Last Admin: 06/17/20 01:03 Dose: 30 ml Documented by: Allopurinol (Allopurinol 300 Mg Tab) 300 mg PO DAILY [facility] Last Admin: 06/17/20 09:02 Dose: 300 mg Documented by: Aspirin (Aspirin Ec 81 Mg Tab) 81 mg PO HS [facility] Last Admin: 06/16/20 22:59 Dose: 81 mg Documented by: Cholecalciferol (Cholecalciferol (Vit D3) 1000 Unit (25 Mcg) Tab) 1,000 unit PO DAILY [facility] Last Admin: 06/17/20 09:01 Dose: 1,000 unit Documented by: Clopidogrel Bisulfate (Clopidogrel 75 Mg Tab) 75 mg PO QDAY [facility] Last Admin: 06/17/20 09:01 Dose: 75 mg Documented by: Docusate Sodium (Docusate Sodium 100 Mg Cap) 100 mg PO BID [facility] Last Admin: 06/17/20 09:01 Dose: Not Given Documented by: Famotidine (Famotidine 20 Mg Tab) 20 mg PO QHS [facility] Last Admin: 06/16/20 23:00 Dose: 20 mg Documented by: Lactated Ringer's (Lactated Ringers) 1,000 mls @ 75 mls/hr IV DIRECT NICA Last Admin: 06/16/20 22:58 Dose: 75 mls/hr Documented by: Sodium Chloride (Nacl 0.9% 1000 Ml) 1,000 mls @ 100 mls/hr IV DIRECT [facility] Dopamine HCl/Dextrose (Intropin Drip 800 Mg/D5w 250 Ml) 800 mg in 250 mls @ 3.3 mls/hr IV TITR [facility]; Protocol Last Admin: 06/16/20 22:25 Dose: 2 mcg/kg/min, 3.3 mls/hr Documented by: Sodium Nitroprusside 50 mg/ (Dextrose) 250 mls @ 6.6 mls/hr IV TITR [facility]; Protocol Metoprolol Tartrate (Metoprolol Tartrate 25 Mg Tab) 25 mg PO BID [facility] Last Admin: 06/17/20 09:01 Dose: Not Given Documented by: Miscellaneous Medication (Potassium Citrate [Urocit-K 15]) 15 meq PO DAILY [facility] Pravastatin Sodium (Pravastatin 20 Mg Tab) 20 mg PO QHS [facility] Last Admin: 06/16/20 23:00 Dose: 20 mg Documented by: Sertraline HCl (Sertraline 100 Mg Tab) 100 mg PO DAILY [facility] Last Admin: 06/17/20 09:02 Dose: 100 mg Documented by: - Physical exam Extremities: no ischemia - Hospital course Hospital course: See operative note and progress note. - Disposition Condition at discharge: Good Disposition: [id number] TO HOME OR SELFCARE Short Stay Discharge Plan Activity: other (No heavy lifting or strenuous activity for 2 weeks) Wound: open to air, keep clean and dry, other ([place] to shower and wash the wounds with soap and water but do not soak in water for 2 weeks.) Follow up with: YAMILETH LOVE MD [Staff Physician] - 14 Days Prescriptions: HYDROcodone/APAP 7.5-325 [[place] 7.5/325] 1 each PO Q6HR PRN #40 tablet PRN Reason: Pain
--- NOTE | 2020-06-17 13:59 | Post Anesthesia Evaluation ---
- Post Anesthesia Evaluation Patient Participated: Yes Airway Patent: Yes Stable Respiratory Function: Yes Nausea/Vomiting: No Temp > 96.8F: Yes Pain Manageable: Yes Adequeate Hydration: Yes Anesthesia Complications: No Block Receding Appropriately: Not Applicable Patient on Ventilator: No Other Comments: prepares for discharge in the good condition
--- NOTE | 2020-06-17 14:35 | Progress Note ---
Assessment and Plan Peripheral vascular disease. Left carotid artery occlusion, status post left carotid endarterectomy. History of hypertension. History of depression. Mild hyponatremia. Acute possibly on chronic kidney injury. Tobacco use disorder. - wean vasopressors for target MAP < 65 mmHg - local wound care to post-op wound - accuchecks resumed with glycemic control per SSI (While critically ill target blood glucose of 140-180 mg/dL; avoid hypoglycemia) - supplemental oxygen for target O2 sat's > 90% acutely - aspiration precautions - prn bronchodilators with pulmonary hygiene per RT - wean per pulmonary driven protocols otherwise - continue to avoid benzodiazepine's, reduce the possibility of delirium - prn analgesia per pain score - Maintenance of sleep-wake cycle, avoid delirium - G.I. & VTE prophylaxis - PT/OT/ROM exercises - tobacco abstinence again counseled - mobility protocols for pressure ulcer prophylaxis - Monitor hemodynamics closely - continue other care per attending / other consultants - discharge planning ongoing concurrently .... Re-evaluate in am & prn CONDITION: CRITICAL PROGNOSIS: GUARDED CODE STATUS: FULL CODE The high probability of a clinically significant, sudden or life-threatening deterioration of the [cardiovascular] system(s) required my full and direct att ention, intervention and personal management. The aggregate critical care time was [32] minutes without overlap. Time includes spent on; [x] Data Review and interpretation [x] Patient assessment and monitoring of vital signs [x] Documentation [x] Medication orders and management Subjective Date of service: 06/17/20 Principal diagnosis: PVD; L. carotid artery occlusion s/p carotid endarterectomy; HTN; ZAC Interval history: Patient is seen today for: Peripheral vascular disease; Left carotid artery occlusion, status post left carotid endarterectomy; HTN; depression; ZAC; Tob acco use disorder. Seen and examined at bedside; 24hour events reviewed; nursing and respiratory care staff consulted; no adverse overnight events reported to me; hypotensive overnight and started on Dopamine drip; denies N/V/F/C; denies acute chest pains or palpitations Objective Vital Signs - 12hr 06/17/20 06/17/20 06/17/20 03:00 03:30 04:00 Temperature 98.6 F Pulse Rate 58 L 53 L 58 L Pulse Rate [ 54 L From Monitor] Respiratory 19 21 17 Rate Blood Pressure 118/60 123/59 106/43 O2 Sat by Pulse 93 94 96 Oximetry 06/17/20 06/17/20 06/17/20 04:30 05:00 05:30 Temperature Pulse Rate 60 83 56 L Pulse Rate [ From Monitor] Respiratory 16 15 17 Rate Blood Pressure 107/38 130/40 O2 Sat by Pulse 96 93 95 Oximetry 06/17/20 06/17/20 06/17/20 06:00 06:30 07:00 Temperature Pulse Rate 51 L 50 L 49 L Pulse Rate [ From Monitor] Respiratory 17 17 15 Rate Blood Pressure 102/36 93/39 118/58 O2 Sat by Pulse 96 96 95 Oximetry 06/17/20 06/17/20 06/17/20 07:30 08:00 08:01 Temperature 98.1 F Pulse Rate 54 L 54 L 69 Pulse Rate [ 54 L From Monitor] Respiratory 21 20 14 Rate Blood Pressure 91/45 97/51 O2 Sat by Pulse 95 93 97 Oximetry 06/17/20 06/17/20 06/17/20 08:31 09:01 09:30 Temperature Pulse Rate 55 L 49 L 49 L Pulse Rate [ From Monitor] Respiratory 17 21 22 Rate Blood Pressure 97/51 112/46 123/58 O2 Sat by Pulse 98 96 97 Oximetry 06/17/20 06/17/20 06/17/20 10:01 10:30 11:00 Temperature Pulse Rate 56 L 52 L 54 L Pulse Rate [ From Monitor] Respiratory 17 21 15 Rate Blood Pressure 108/43 111/55 111/52 O2 Sat by Pulse 95 93 94 Oximetry 06/17/20 12:00 Temperature 98.1 F Pulse Rate Pulse Rate [ From Monitor] Respiratory Rate Blood Pressure O2 Sat by Pulse Oximetry Constitutional: no acute distress Eyes: non-icteric ENT: oropharynx moist Neck: supple, no lymphadenopathy, no JVD, other (left CEA scar) Effort: normal Ascultation: Bilateral: clear Percussion: Bilateral: not dull Cardiovascular: regular rate and rhythm Gastrointestinal: normoactive bowel sounds, soft, non-tender, non-distended Integumentary: other (post op scars) Extremities: no cyanosis, no edema, pulses normal, no ischemia or petechiae Neurologic: non-focal exam, pupils equal and round, CN II-XII normal, motor strength normal and Psychiatric: mood appropriate, affect normal CBC and BMP: 06/17/20 08:31 06/15/20 10:05 Abnormal lab findings: Abnormal Labs 06/15/20 06/15/20 06/17/20 10:05 10:05 08:31 RBC 3.22 L Hct 35.1 L MCV 109 H 109 H MCH 38 H 38 H MCHC 35 H 35 H Plt Count 122 L Lymph % (Auto) 10.3 L Lymph # (Auto) 0.8 L Seg Neutrophils % 81.1 H Sodium 135 L Creatinine 1.6 H Glucose 101 H Albumin 3.8 L Allied health notes reviewed: nursing
[2020-06-17 15:22] VITALS: BP 108/49
== END 2020-06-17 17:00 | disposition home or self-care (01) | DRG 38 ==
LOC: 3A 06:16 → EDSTATUS 08:00 → CC1 11:20 → IMCU 12:50
PROVIDERS: ADMIT Surgery Vascular Surgery; ATTEND Surgery Vascular Surgery
PROC: 03CL0ZZ Extirpation of Matter from Left Internal Carotid Artery, Open Approach (ICD-10-PCS; principal; 2020-06-16)
PROC: 03UL0JZ Supplement Left Internal Carotid Artery with Synthetic Substitute, Open Approach (ICD-10-PCS; 2020-06-16)
DX: I65.22 Occlusion and stenosis of left carotid artery (principal); E87.1 Hypo-osmolality and hyponatremia; N17.9 Acute kidney failure, unspecified; F32.9 Major depressive disorder, single episode, unspecified; K21.9 Gastro-esophageal reflux disease without esophagitis; I12.9 Hypertensive chronic kidney disease with stage 1 through stage 4 chronic kidney disease, or unspecified chronic kidney disease; N18.30 Chronic kidney disease, stage 3 unspecified; E78.5 Hyperlipidemia, unspecified; I73.9 Peripheral vascular disease, unspecified; F17.210 Nicotine dependence, cigarettes, uncomplicated; Z91.048 Other nonmedicinal substance allergy status; Z20.822 Contact with and (suspected) exposure to COVID-19
CPT/HCPCS: 36415; 36620; 80053; 85025; 85027; 86850; 86900; 86901; 88304; 88311; G0378; A4649; A9270-GY; C1768; J0690; J1100; J1265; J1644; J1885; J2250; J2370; J2405; J2440; J2704; J2720; J3475; J3490; J7040; J7120; U0003